=== PATIENT | male | born 1955 | race Hispanic/Latino ===

== ENCOUNTER 2018-03-23 07:34 | Day surgery (SDC) | payer OTHER ==
[2018-03-22 15:15] VITALS: BP 126/76
[~2018-03-23] VITALS: Ht 170.2 cm; Wt 87.1 kg
[2018-03-23] VITALS (15 sets, daily range): BP systolic 105–139; BP diastolic 62–83
[2018-03-23] MEDS: CEFAZOLIN SODIUM 1 GM VIAL IVP SCH ×2 (06:00→12:20)
[~2018-03-23 07:34] MED LIST: CYCL10TA7 PO; DULO40CA2 PO; GLUC100019 PO; HYDR-4068 PO; IBUP-2077 PO; OMEP40CA37 PO; TRAZ-185 PO
[2018-03-23] MEDS ORDERED: LACTATED RINGERS 1000ML 1,000 ML IV ONE (07:52)
[2018-03-23] MEDS ORDERED: VITA100051 PO (08:42)
[2018-03-23] MEDS ORDERED: MIRT15TA7 PO (08:42)
[2018-03-23] MEDS ORDERED: FLUT16H NS (08:42)
[2018-03-23] MEDS ORDERED: LIDOCAINE PF 2% 5ML ABBOJECT ONE (11:30)
[2018-03-23] MEDS ORDERED: MIDAZOLAM HCL 1 MG/ML 2ML VIAL ONE (11:30)
[2018-03-23] MEDS ORDERED: ROCURONIUM BROMIDE 10MG/1ML 5ML VL ONE (11:30)
[2018-03-23] MEDS ORDERED: PROPOFOL 10 MG/ML 20ML VIAL IV ONE (11:30)
[2018-03-23] MEDS ORDERED: FENTANYL CITRATE PF 50 MCG/1 ML 5ML AMP IV ONE (11:31)
[2018-03-23] MEDS ORDERED: ROPIVACAINE 0.5% 5MG/ML 30ML IJ ONE (11:48)
[2018-03-23] MEDS ORDERED: EPINEPHRINE 1 MG/ML 30ML VIAL IJ ONE (11:52)
[2018-03-23] MEDS ORDERED: ONDANSETRON HCL MDV 20ML 2 MG/ML VIAL ONE (12:49)
[2018-03-23] MEDS ORDERED: OCTYL 2-CYANOACRYLATE 1 EACH TP ONE (13:15)
[2018-03-23] MEDS ORDERED: NEOSTIGMINE 5MG/5ML SYR IV ONE (13:16)
[2018-03-23] MEDS ORDERED: MEPERIDINE-PF 50 MG/ML SYG ONE (13:41)
[2018-03-23] MEDS ORDERED: CALDOLOR 800MG+NS 250ML 250 ML IV ONE (13:41)
== END 2018-03-23 16:08 | disposition home or self-care (01) ==
LOC: DAH 07:34
PROVIDERS: ATTEND Orthopaedic Surgery
DX: M75.101 Unspecified rotator cuff tear or rupture of right shoulder, not specified as traumatic (principal); M75.41 Impingement syndrome of right shoulder; M19.011 Primary osteoarthritis, right shoulder; Z79.899 Other long term (current) drug therapy; Z98.890 Other specified postprocedural states; Z68.30 Body mass index [BMI] 30.0-30.9, adult; Z80.9 Family history of malignant neoplasm, unspecified; Z80.1 Family history of malignant neoplasm of trachea, bronchus and lung; G89.29 Other chronic pain; K21.9 Gastro-esophageal reflux disease without esophagitis; E66.01 Morbid (severe) obesity due to excess calories; F32.9 Major depressive disorder, single episode, unspecified; Z87.891 Personal history of nicotine dependence; M54.5 Low back pain; E11.9 Type 2 diabetes mellitus without complications; E78.2 Mixed hyperlipidemia; G47.33 Obstructive sleep apnea (adult) (pediatric); I10 Essential (primary) hypertension
CPT/HCPCS: 29824; 29826; 29827; A4218; A4565; A4649 ×3; A4930; A6204; J0171; J0690; J1741; J2001; J2175; J2250; J2704; J2710; J2795; J3010; J3490; J7030; J7120